=== PATIENT | female | born 1995 | race Two or more races ===

== ENCOUNTER 2020-04-22 07:27 | Emergency (ER) | payer MEDICAID ==
[2020-04-22] MEDS ORDERED: Sodium Chloride 0.9% 10 ML Syringe FLUSH PRN (08:12)
[2020-04-22] MEDS ORDERED: Ondansetron 4 MG/2 ML SDV IVPUSH ONE (08:12)
[2020-04-22] MEDS ORDERED: Acetaminophen 500 MG Tab PO ONE (08:12)
[2020-04-22] MEDS ORDERED: Sodium Chloride 0.9% 2.5 ML Syringe FLUSH PRN (08:12)
--- NOTE | 2020-04-22 08:22 | EDM.PDOC ---
ED HPI GENERAL MEDICAL PROBLEM - General Chief Complaint: Abdominal Pain Stated Complaint: ABDOMINAL PAIN Time Seen by Provider: 04/22/20 07:27 Source of Information: Reports: Police History Limitations: Reports: No Limitations - History of Present Illness INITIAL COMMENTS - FREE TEXT/NARRATIVE: 24-year-old female with past medical history of x2 presenting with abdominal pain. Patient reports a 2-month history of right upper quadrant abdominal pain that radiates to the back. Nothing makes it better or worse. Described as "pressure", intermittent in nature. Has not sought medical evaluation for this before. Usually lasts for just a few hours and goes away. This morning, the pain started around midnight and did not go away, which was unusual in the length of duration, so she came to the emergency department for evaluation. She reports some nausea but has not had any emesis. Intermittently taking ibuprofen without relief. No history of biliary colic or biliary disease, pancreatitis, liver disease, hematemesis, diarrhea, bloody stools, fever, chills, chest pain, vaginal bleeding, dysuria, urinary frequency, or hematuria. ROS: A 10-point review of systems was negative, except as noted in the HPI (or in the ROS section of this note). Past medical history: Reviewed, no additional pertinent history. Surgical history: Reviewed in system, no additional pertinent history. Social history: Reviewed in system, no additional pertinent history. Family history: Reviewed in system, no additional pertinent history. PHYSICAL EXAM Vital signs reviewed. Nursing notes reviewed. Constitutional: Awake, alert, uncomfortable appearing. Head: Normocephalic, atraumatic. Eyes: EOMI, conjunctiva normal, no discharge, no scleral icterus. Ears, Nose, Throat: External ears and nose normal, moist oral mucosa. Cardiovascular: 2+ radial pulse, capillary refill less than 2 seconds. Pulmonary: normal work of breathing, no accessory muscle use. Abdomen/GI: Soft, moderate right upper quadrant tenderness, nondistended, no guarding or rigidity, no masses. No CVA tenderness. Musculoskeletal: No deformities. Integumentary: Appropriate color for ethnicity, warm, dry, no pallor or jaundice, no rash. Neurologic: Alert, answering questions appropriately, normal speech, no facial droop, moving all extremities well. Psychiatric: Appropriate mood and affect, normal thought process. right abdomen Pain Score (Numeric/FACES): 8 - Related Data Allergies Allergy/AdvReac Type Severity Reaction Status Date / Time No Known Allergies Allergy Verified 04/22/20 07:41 Past Medical History HEENT History: Reports: None Cardiovascular History: Reports: None Respiratory History: Reports: None Gastrointestinal History: Reports: None Genitourinary History: Reports: None ROLL WINDER History: Reports: Musculoskeletal History: Reports: None Neurological History: Reports: None Psychiatric History: Reports: Anxiety Endocrine/Metabolic History: Reports: None Hematologic History: Reports: None Immunologic History: Reports: None Oncologic (Cancer) History: Reports: None Dermatologic History: Reports: None - Infectious Disease History Infectious Disease History: Reports: None - Past Surgical History Head Surgeries/Procedures: Reports: None HEENT Surgical History: Reports: None Cardiovascular Surgical History: Reports: None Respiratory Surgical History: Reports: None GI Surgical History: Reports: None Female Surgical History: Reports: Section Endocrine Surgical History: Reports: None Neurological Surgical History: Reports: None Musculoskeletal Surgical History: Reports: None Oncologic Surgical History: Reports: None Dermatological Surgical History: Reports: None Social & Family History - Family History Family Medical History: Noncontributory - Tobacco Use Smoking Status *Q: Never Smoker Second Hand Smoke Exposure: No - Caffeine Use Caffeine Use: Reports: None - Recreational Drug Use Recreational Drug Use: No ED ROS GENERAL - Review of Systems Review Of Systems: See Below ED EXAM, GI/ABD - Physical Exam Exam: See Below EKG INTERPRETATION EKG Interpretation Comments: 12-Lead ECG Interpretation Acquired: 8:33 AM Rhythm: Sinus arrhythmia Rate: 64 bpm Correll: Normal Intervals: Normal Ectopy: None Ischemic Changes: None apparent RV Strain: No obvious RV strain pattern. ST Segments/T-Waves: No notable changes Interpretation: Unremarkable Course - Vital Signs Text/Narrative:: Patient hemodynamically stable, afebrile, well-appearing, looks nontoxic. Differential diagnosis includes but is not limited to: Biliary colic, acute cholecystitis, ascending cholangitis, choledocholithiasis, acute hepatitis, pancreatitis, gastritis, AAA, GERD, bowel obstruction, intra-abdominal infection, pyelonephritis, pneumonia, acute coronary syndrome, etc. Labs are reassuring. No leukocytosis, normal renal function and electrolytes. Normal LFTs, lipase, and troponin. Urinalysis shows small occult blood but no evidence of infection. test is negative. Abdominal ultrasound demonstrated multiple gallstones but no evidence of acute cholecystitis. We gave the patient acetaminophen and her pain totally resolved. She is feeling much better. There is no evidence of an infectious process at this point, particularly cholecystitis. Patient's abdomen is soft and is less tender than before. She appears nontoxic and is now asymptomatic at this point. Presentation seems consistent with symptomatic cholelithiasis. Given that her symptoms have resolved, I did not pursue CT imaging. Plan: Patient is stable to discharge home with outpatient general surgery clinic follow-up in the next few weeks to determine if further work-up or elective cholecystectomy is warranted. We discussed [id number] treatment acetaminophen and NSAIDs, along with heating packs, and reducing the amount of fatty foods in her diet. Strict emergency department return precautions were provided, patient indicated understanding. All questions were answered prior to departure. Discharged in good condition. Last Recorded V/S: Last Vital Signs Temp 35.8 C L 04/22/20 07:42 Pulse 71 04/22/20 07:42 Resp 18 04/22/20 07:42 BP 126/75 04/22/20 07:42 Pulse Ox 97 04/22/20 07:42 - Orders/Labs/Meds Orders: Active Orders 24 hr Category Date Time Status EKG 12 Lead [EKG Documentation Completion] [RC] STAT Care 04/22/20 08:21 Active Sodium Chloride 0.9% [Saline Flush] Med 04/22/20 08:12 Active 10 ml FLUSH ASDIRECTED PRN Sodium Chloride 0.9% [Saline Flush] Med 04/22/20 08:12 Active 2.5 ml FLUSH ASDIRECTED PRN Saline Lock Insert [OM.PC] Stat Oth 04/22/20 08:12 Ordered Medication Orders Sodium Chloride (Saline Flush) 2.5 ml FLUSH ASDIRECTED PRN PRN Reason: Keep Vein Open Last Admin: 04/22/20 08:24 Dose: 2.5 ml Documented by: GIOVANY Sodium Chloride (Saline Flush) 10 ml FLUSH ASDIRECTED PRN PRN Reason: Keep Vein Open Last Admin: 04/22/20 08:23 Dose: 10 ml Documented by: [email or web address] Labs: Laboratory Tests 04/22/20 04/22/20 04/22/20 Range/Units 07:49 07:49 07:53 WBC 7.54 (4.0-11.0) K/uL RBC 4.81 (4.30-5.90) M/uL Hgb 14.0 (12.0-16.0) g/dL Hct 42.8 (36.0-46.0) % MCV 89.0 (80.0-98.0) fL MCH 29.1 (27.0-32.0) pg MCHC 32.7 (31.0-37.0) g/dL RDW Std Deviation 44.7 (28.0-62.0) fl RDW Coeff of Red 14 (11.0-15.0) % Plt Count 244 (150-400) K/uL MPV 10.40 (7.40-12.00) fL Neut % (Auto) 56.9 (48.0-80.0) % Lymph % (Auto) 33.3 (16.0-40.0) % Evans % (Auto) 7.7 (0.0-15.0) % Eos % (Auto) 2.0 (0.0-7.0) % Baso % (Auto) 0.1 (0.0-1.5) % Neut # (Auto) 4.3 (1.4-5.7) K/uL Lymph # (Auto) 2.5 H (0.6-2.4) K/uL Evans # (Auto) 0.6 (0.0-0.8) K/uL Eos # (Auto) 0.2 (0.0-0.7) K/uL Baso # (Auto) 0.0 (0.0-0.1) K/uL Nucleated RBC % 0.0 /100WBC Nucleated RBCs # 0 K/uL Sodium (136-145) mmol/L Potassium (3.5-5.1) mmol/L Chloride (98-107) mmol/L Carbon Dioxide (21.0-32.0) mmol/L BUN (7.0-18.0) mg/dL Creatinine (0.6-1.0) mg/dL Est Cr Clr Drug Dosing mL/min Estimated GFR (MDRD) ml/min Glucose (74-106) mg/dL Calcium (8.5-10.1) mg/dL Total Bilirubin (0.2-1.0) mg/dL AST (15-37) IU/L ALT (14-63) IU/L Alkaline Phosphatase (46-116) U/L Troponin I (0.000-0.056) ng/mL Total Protein (6.4-8.2) g/dL Albumin (3.4-5.0) g/dL Globulin (2.6-4.0) g/dL Albumin/Globulin Ratio (0.9-1.6) Lipase (73-393) U/L Urine Color YELLOW Urine Appearance SLT CLOUDY Urine pH 5.0 (5.0-8.0) Ur Specific Fabens >= 1.030 (1.001-1.035) Urine Protein NEGATIVE (NEGATIVE) mg/dL Urine Glucose (UA) NEGATIVE (NEGATIVE) mg/dL Urine Ketones NEGATIVE (NEGATIVE) mg/dL Urine Occult Blood SMALL H (NEGATIVE) Urine Nitrite NEGATIVE (NEGATIVE) Urine Bilirubin NEGATIVE (NEGATIVE) Urine Urobilinogen 0.2 (<2.0) EU/dL Ur Leukocyte Esterase NEGATIVE (NEGATIVE) Urine RBC 1-3 (0-2/HPF) Urine WBC 0-2 (0-5/HPF) Ur Epithelial Cells FEW (NONE-FEW) Urine Bacteria RARE (NEGATIVE) Urine Mucus HEAVY (NONE-MOD) Urine HCG, Qual NEGATIVE (NEGATIVE) 04/22/20 Range/Units 07:53 WBC (4.0-11.0) K/uL RBC (4.30-5.90) M/uL Hgb (12.0-16.0) g/dL Hct (36.0-46.0) % MCV (80.0-98.0) fL MCH (27.0-32.0) pg MCHC (31.0-37.0) g/dL RDW Std Deviation (28.0-62.0) fl RDW Coeff of Red (11.0-15.0) % Plt Count (150-400) K/uL MPV (7.40-12.00) fL Neut % (Auto) (48.0-80.0) % Lymph % (Auto) (16.0-40.0) % Evans % (Auto) (0.0-15.0) % Eos % (Auto) (0.0-7.0) % Baso % (Auto) (0.0-1.5) % Neut # (Auto) (1.4-5.7) K/uL Lymph # (Auto) (0.6-2.4) K/uL Evans # (Auto) (0.0-0.8) K/uL Eos # (Auto) (0.0-0.7) K/uL Baso # (Auto) (0.0-0.1) K/uL Nucleated RBC % /100WBC Nucleated RBCs # K/uL Sodium 140 (136-145) mmol/L Potassium 3.7 (3.5-5.1) mmol/L Chloride 104 (98-107) mmol/L Carbon Dioxide 28.8 (21.0-32.0) mmol/L BUN 14 (7.0-18.0) mg/dL Creatinine 0.8 (0.6-1.0) mg/dL Est Cr Clr Drug Dosing 92.83 mL/min Estimated GFR (MDRD) > 60.0 ml/min Glucose 114 H (74-106) mg/dL Calcium 8.9 (8.5-10.1) mg/dL Total Bilirubin 0.2 (0.2-1.0) mg/dL AST 21 (15-37) IU/L ALT 32 (14-63) IU/L Alkaline Phosphatase 104 (46-116) U/L Troponin I < 0.050 (0.000-0.056) ng/mL Total Protein 7.8 (6.4-8.2) g/dL Albumin 4.2 (3.4-5.0) g/dL Globulin 3.6 (2.6-4.0) g/dL Albumin/Globulin Ratio 1.2 (0.9-1.6) Lipase 97 (73-393) U/L Urine Color Urine Appearance Urine pH (5.0-8.0) Ur Specific Fabens (1.001-1.035) Urine Protein (NEGATIVE) mg/dL Urine Glucose (UA) (NEGATIVE) mg/dL Urine Ketones (NEGATIVE) mg/dL Urine Occult Blood (NEGATIVE) Urine Nitrite (NEGATIVE) Urine Bilirubin (NEGATIVE) Urine Urobilinogen (<2.0) EU/dL Ur Leukocyte Esterase (NEGATIVE) Urine RBC (0-2/HPF) Urine WBC (0-5/HPF) Ur Epithelial Cells (NONE-FEW) Urine Bacteria (NEGATIVE) Urine Mucus (NONE-MOD) Urine HCG, Qual (NEGATIVE) Meds: Medications Generic Name Dose Route Start Last Admin Trade Name Freq PRN Reason Stop Dose Admin Sodium Chloride 2.5 ml 04/22/20 08:12 04/22/20 08:24 Saline Flush FLUSH 2.5 ml ASDIRECTED PRN Administration Keep Vein Open Sodium Chloride 10 ml 04/22/20 08:12 04/22/20 08:23 Saline Flush FLUSH 10 ml ASDIRECTED PRN Administration Keep Vein Open Discontinued Medications Generic Name Dose Route Start Last Admin Trade Name Freq PRN Reason Stop Dose Admin Acetaminophen 1,000 mg 04/22/20 08:12 04/22/20 08:24 Tylenol Extra Strength PO 04/22/20 08:13 1,000 mg ONETIME ONE Administration Ondansetron HCl 4 mg 04/22/20 08:12 04/22/20 08:24 Zofran IVPUSH 04/22/20 08:13 4 mg ONETIME ONE Administration Departure - Departure Time of Disposition: 10:42 Disposition: Home, Self-Care 01 Condition: Good Clinical Impression: Symptomatic cholelithiasis - Discharge Information *PRESCRIPTION DRUG MONITORING PROGRAM REVIEWED*: Not Applicable *COPY OF PRESCRIPTION DRUG MONITORING REPORT IN PATIENT RIGO: Not Applicable Instructions: Cholelithiasis, Abdominal Pain, Adult, [id number] Referrals: [facility] - General Surgery [Provider Group] - 1 Week (For follow-up of your abdominal pain and gallstones.) Forms: ED Department Discharge Additional Instructions: Thank you for choosing the [facility] emergency department in [place] for your medical needs today. It was a pleasure caring for you. You were seen in the emergency department for abdominal pain. I believe that your pain is due to the presence of multiple gallstones in your gallbladder. At this point, there is no evidence of swelling or infection of the gallbladder that require to be surgically removed today. I would like for you to follow-up with the general surgery clinic in the next 1 to 2 weeks to determine if further work-up is warranted or if you are a candidate for elective surgical removal of your gallbladder. You can take [id number] acetaminophen or naproxen as needed for pain, take as directed on the package. He can also try heating pads. I recommend limiting the amount of fatty foods in your diet such as fried food, as this could make your pain worse. You should return to the ER if your symptoms worsen, particularly if you develop severe pain, multiple episodes of vomiting, chills, or fever of 100.4 or higher. Please return the emergency department immediately if your symptoms worsen or if you feel worse. The following information is given to patients seen in the emergency department who are being discharged. This information is to outline your options for follow-up care. We provide all patients seen in our emergency department with a follow-up referral. The need for follow-up, as well as the timing and circumstances, are variable depending upon the specifics of your emergency department visit. If you don't have a primary care physician on staff, we will provide you with a referral. We always advise you to contact your personal physician following an emergency department visit to inform them of the circumstance of the visit and for follow-up with them and/or the need for any referrals to a consulting specialist. The emergency department will also refer you to a specialist when appropriate. This referral assures that you have the opportunity for follow-up care with a specialist. All of these measure are taken in an effort to provide you with optimal care, which includes your follow-up. Under all circumstances we always encourage you to contact your private physician who remains a resource for coordinating your care. When calling for follow-up care, please make the office aware that this follow-up is from your recent emergency room visit. If for any reason you are refused follow-up, please contact the [facility] Emergency Department at and asked to speak to the emergency department charge nurse. If you do not have a primary care physician that is caring for you, you can contact these clinics below to set up an appointment to establish care: [facility] - Primary Care [address] [place] [address] [facility] [address] [place] [address] Sepsis Event Note (ED) - Evaluation Sepsis Screening Result: No Definite Risk - Focused Exam Vital Signs: Vital Signs Temp Pulse Resp BP Pulse Ox 04/22/20 07:42 35.8 C L 71 18 126/75 97 - My Orders Last 24 Hours: My Active Orders 04/22/20 08:12 Sodium Chloride 0.9% [Saline Flush] 10 ml FLUSH ASDIRECTED PRN Sodium Chloride 0.9% [Saline Flush] 2.5 ml FLUSH ASDIRECTED PRN Saline Lock Insert [OM.PC] Stat 04/22/20 08:21 EKG 12 Lead [EKG Documentation Completion] [RC] STAT - Assessment/Plan Last 24 Hours: My Active Orders 04/22/20 08:12 Sodium Chloride 0.9% [Saline Flush] 10 ml FLUSH ASDIRECTED PRN Sodium Chloride 0.9% [Saline Flush] 2.5 ml FLUSH ASDIRECTED PRN Saline Lock Insert [OM.PC] Stat 04/22/20 08:21 EKG 12 Lead [EKG Documentation Completion] [RC] STAT
[2020-04-22 08:31] LABS: BLOOD UREA NITROGEN,BUN 14 mg/dL (7.0-18.0); CARBON DIOXIDE,CO2 28.8 mmol/L (21.0-32.0); CHLORIDE,CL 104 mmol/L (98-107); GLUCOSE RANDOM 114 mg/dL (74-106); LIPASE 97 U/L (73-393); POTASSIUM,K 3.7 mmol/L (3.5-5.1); SODIUM,NA 140 mmol/L (136-145)
--- NOTE | 2020-04-22 09:59 | US ---
Abdominal ultrasound: Multiple real-time images of the upper right abdomen were obtained. Comparison: No prior abdominal imaging is available. Multiple small shadowing gallstones are seen within the gallbladder. No gallbladder wall thickening is seen. Common bile duct measures within normal limits. Liver contains no focal parenchymal abnormality but is slightly echogenic in relation to the kidney most likely representing fatty infiltration. Right kidney shows no hydronephrosis or mass. Right kidney has a length of 10.3 cm. Visualized portions of the pancreas are unremarkable. Impression: 1. Multiple small shadowing gallstones within the gallbladder. No gallbladder wall thickening or biliary duct dilatation is seen. 2. Probable fatty infiltration within the liver. 3. Ultrasound of the right upper abdomen is otherwise unremarkable. Diagnostic code #3 This report was dictated in MDT
== END 2020-04-22 10:50 | disposition home or self-care (01) ==
LOC: MW.ED 07:27
DX: K80.20 Calculus of gallbladder without cholecystitis without obstruction (principal)
CPT/HCPCS: 36415; 76705; 80053; 81001; 81025; 83690; 84484; 85025; 93005; 96374; 99284; A9270; J2405

== ENCOUNTER 2020-05-15 20:24 | Emergency (ER) | payer MEDICAID ==
[2020-05-15] MEDS ORDERED: Sodium Chloride 0.9% 2.5 ML Syringe FLUSH PRN (20:46)
[2020-05-15] MEDS ORDERED: Ondansetron 4 MG/2 ML SDV IVPUSH ONE ×2 (20:46→22:02)
[2020-05-15] MEDS ORDERED: Sodium Chloride 0.9% 10 ML Syringe FLUSH PRN (20:46)
[2020-05-15] MEDS ORDERED: Morphine 4 MG/ML Syringe IVPUSH ONE (20:46)
[2020-05-15] MEDS ORDERED: Lactated Ringers 1,000 ML IV ONE (20:47)
--- NOTE | 2020-05-15 20:52 | EDM.PDOC ---
ED HPI GENERAL MEDICAL PROBLEM - General Chief Complaint: Abdominal Pain Stated Complaint: GALLSTONES Time Seen by Provider: 05/15/20 20:29 - History of Present Illness INITIAL COMMENTS - FREE TEXT/NARRATIVE: Patient is an otherwise well 24-year-old female presenting with a 10 out of 10 epigastric abdominal pain with some radiation to the right upper quadrant associated with nausea but no vomiting it started 30 minutes prior to arrival. It is cramping and seems to come and go in waves. No flank pain no dysuria or hematuria. Patient reports she had a small bowel movement earlier this morning. She does have a history of trouble with constipation. Patient denies having any thing to eat since this morning. No clear exacerbating or alleviating factors patient had a similar presentation at the beginning of this month and was diagnosed with cholelithiasis. Patient attempted to follow-up with the general surgeons. However, because of her insurance she is not covered locally. She reports that she is returning to [place] at the end of this month and plans to pursue cholecystectomy when she returns to [place]. She denies fevers or chills. She denies vaginal bleeding or discharge. No chest pain no cough no shortness of breath. Middle Abdomen Pain Score (Numeric/FACES): 10 - Related Data Allergies Allergy/AdvReac Type Severity Reaction Status Date / Time No Known Allergies Allergy Verified 05/15/20 20:42 Home Meds: Home Meds . 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: Musculoskeletal History: Reports: None Neurological History: Reports: None Psychiatric History: Reports: Anxiety Endocrine/Metabolic History: Reports: None Hematologic History: Reports: None Immunologic History: Reports: None Oncologic (Cancer) History: Reports: None Dermatologic History: Reports: None - Infectious Disease History Infectious Disease History: Reports: None - Past Surgical History Head Surgeries/Procedures: Reports: None HEENT Surgical History: Reports: None Cardiovascular Surgical History: Reports: None Respiratory Surgical History: Reports: None GI Surgical History: Reports: None Female Surgical History: Reports: Section Endocrine Surgical History: Reports: None Neurological Surgical History: Reports: None Musculoskeletal Surgical History: Reports: None Oncologic Surgical History: Reports: None Dermatological Surgical History: Reports: None Social & Family History - Family History Family Medical History: Noncontributory - Tobacco Use Smoking Status *Q: Never Smoker Second Hand Smoke Exposure: No - Caffeine Use Caffeine Use: Reports: None - Recreational Drug Use Recreational Drug Use: No ED ROS GENERAL - Review of Systems Review Of Systems: See Below Free Text/Narrative/Comment: General: No fever. Skin: No rash. Eyes: No vision problems. ENT: No sore throat. Neck: No neck stiffness. Respiratory: No shortness of breath. Cardiac: No chest pain. Gastrointestinal: Per HPI Urinary: No dysuria. Musculoskeletal: No myalgias/arthralgias. Neurologic: No headache. ED EXAM, GENERAL - Physical Exam Exam: See Below Free Text/Narrative:: General Appearance: No acute distress, appears comfortable Skin: No rash HEENT: Normocephalic/atraumatic, sclera anicteric, mucous membranes moist Neck: Normal range of motion Chest and Lungs: Bilateral breath sounds, clear to auscultation Cardiovascular: Regular rate and rhythm, no murmur Abdomen: Soft, epigastric and right upper quadrant tenderness without guarding or rebound Back: Normal Musculoskeletal: No edema or tenderness Neurologic: Awake, alert, no obvious deficits, moving all extremities Psychiatric: Appropriate, cooperative Course - Vital Signs Last Recorded V/S: Last Vital Signs Temp 97.6 F 05/15/20 20:36 Pulse 71 05/15/20 21:10 Resp 18 05/15/20 20:36 BP 127/80 05/15/20 21:10 Pulse Ox 95 05/15/20 21:10 - Orders/Labs/Meds Orders: Active Orders 24 hr Category Date Time Status Sodium Chloride 0.9% [Saline Flush] Med 05/15/20 20:46 Active 10 ml FLUSH ASDIRECTED PRN Sodium Chloride 0.9% [Saline Flush] Med 05/15/20 20:46 Active 2.5 ml FLUSH ASDIRECTED PRN Saline Lock Insert [OM.PC] Stat Oth 05/15/20 20:46 Ordered Medication Orders Sodium Chloride (Saline Flush) 10 ml FLUSH ASDIRECTED PRN PRN Reason: Keep Vein Open Last Admin: 05/15/20 21:05 Dose: 10 ml Documented by: RAINA Sodium Chloride (Saline Flush) 2.5 ml FLUSH ASDIRECTED PRN PRN Reason: Keep Vein Open Last Admin: 05/15/20 21:05 Dose: 2.5 ml Documented by: RAINA Labs: Laboratory Tests 05/15/20 05/15/20 05/15/20 Range/Units 21:00 21:00 22:00 WBC 7.21 (4.0-11.0) K/uL RBC 4.74 (4.30-5.90) M/uL Hgb 13.9 (12.0-16.0) g/dL Hct 42.2 (36.0-46.0) % MCV 89.0 (80.0-98.0) fL MCH 29.3 (27.0-32.0) pg MCHC 32.9 (31.0-37.0) g/dL RDW Std Deviation 43.6 (28.0-62.0) fl RDW Coeff of Red 13 (11.0-15.0) % Plt Count 231 (150-400) K/uL MPV 10.40 (7.40-12.00) fL Neut % (Auto) 60.5 (48.0-80.0) % Lymph % (Auto) 30.8 (16.0-40.0) % [place] % (Auto) 6.7 (0.0-15.0) % Eos % (Auto) 1.9 (0.0-7.0) % Baso % (Auto) 0.1 (0.0-1.5) % Neut # (Auto) 4.4 (1.4-5.7) K/uL Lymph # (Auto) 2.2 (0.6-2.4) K/uL [place] # (Auto) 0.5 (0.0-0.8) K/uL Eos # (Auto) 0.1 (0.0-0.7) K/uL Baso # (Auto) 0.0 (0.0-0.1) K/uL Nucleated RBC % 0.0 /100WBC Nucleated RBCs # 0 K/uL Sodium 141 (136-145) mmol/L Potassium 3.9 (3.5-5.1) mmol/L Chloride 105 (98-107) mmol/L Carbon Dioxide 25.7 (21.0-32.0) mmol/L BUN 14 (7.0-18.0) mg/dL Creatinine 0.8 (0.6-1.0) mg/dL Est Cr Clr Drug Dosing 92.83 mL/min Estimated GFR (MDRD) > 60.0 ml/min Glucose 102 (74-106) mg/dL Calcium 9.2 (8.5-10.1) mg/dL Total Bilirubin 0.1 L (0.2-1.0) mg/dL AST 19 (15-37) IU/L ALT 30 (14-63) IU/L Alkaline Phosphatase 98 (46-116) U/L Total Protein 7.5 (6.4-8.2) g/dL Albumin 4.1 (3.4-5.0) g/dL Globulin 3.4 (2.6-4.0) g/dL Albumin/Globulin Ratio 1.2 (0.9-1.6) Lipase 93 (73-393) U/L Urine Color YELLOW Urine Appearance SLT CLOUDY Urine pH 5.5 (5.0-8.0) Ur Specific [place] >= 1.030 (1.001-1.035) Urine Protein NEGATIVE (NEGATIVE) mg/dL Urine Glucose (UA) NEGATIVE (NEGATIVE) mg/dL Urine Ketones TRACE H (NEGATIVE) mg/dL Urine Occult Blood TRACE-INTACT H (NEGATIVE) Urine Nitrite NEGATIVE (NEGATIVE) Urine Bilirubin NEGATIVE (NEGATIVE) Urine Urobilinogen 0.2 (<2.0) EU/dL Ur Leukocyte Esterase NEGATIVE (NEGATIVE) Urine RBC 1-3 (0-2/HPF) Urine WBC 0-3 (0-5/HPF) Ur Epithelial Cells MODERATE (NONE-FEW) Urine Bacteria 2+ H (NEGATIVE) Urine Mucus MODERATE (NONE-MOD) Urine HCG, Qual (NEGATIVE) 05/15/20 Range/Units 22:00 WBC (4.0-11.0) K/uL RBC (4.30-5.90) M/uL Hgb (12.0-16.0) g/dL Hct (36.0-46.0) % MCV (80.0-98.0) fL MCH (27.0-32.0) pg MCHC (31.0-37.0) g/dL RDW Std Deviation (28.0-62.0) fl RDW Coeff of Red (11.0-15.0) % Plt Count (150-400) K/uL MPV (7.40-12.00) fL Neut % (Auto) (48.0-80.0) % Lymph % (Auto) (16.0-40.0) % [place] % (Auto) (0.0-15.0) % Eos % (Auto) (0.0-7.0) % Baso % (Auto) (0.0-1.5) % Neut # (Auto) (1.4-5.7) K/uL Lymph # (Auto) (0.6-2.4) K/uL [place] # (Auto) (0.0-0.8) K/uL Eos # (Auto) (0.0-0.7) K/uL Baso # (Auto) (0.0-0.1) K/uL Nucleated RBC % /100WBC Nucleated RBCs # K/uL Sodium (136-145) mmol/L Potassium (3.5-5.1) mmol/L Chloride (98-107) mmol/L Carbon Dioxide (21.0-32.0) mmol/L BUN (7.0-18.0) mg/dL Creatinine (0.6-1.0) mg/dL Est Cr Clr Drug Dosing mL/min Estimated GFR (MDRD) ml/min Glucose (74-106) mg/dL Calcium (8.5-10.1) mg/dL Total Bilirubin (0.2-1.0) mg/dL AST (15-37) IU/L ALT (14-63) IU/L Alkaline Phosphatase (46-116) U/L Total Protein (6.4-8.2) g/dL Albumin (3.4-5.0) g/dL Globulin (2.6-4.0) g/dL Albumin/Globulin Ratio (0.9-1.6) Lipase (73-393) U/L Urine Color Urine Appearance Urine pH (5.0-8.0) Ur Specific [place] (1.001-1.035) Urine Protein (NEGATIVE) mg/dL Urine Glucose (UA) (NEGATIVE) mg/dL Urine Ketones (NEGATIVE) mg/dL Urine Occult Blood (NEGATIVE) Urine Nitrite (NEGATIVE) Urine Bilirubin (NEGATIVE) Urine Urobilinogen (<2.0) EU/dL Ur Leukocyte Esterase (NEGATIVE) Urine RBC (0-2/HPF) Urine WBC (0-5/HPF) Ur Epithelial Cells (NONE-FEW) Urine Bacteria (NEGATIVE) Urine Mucus (NONE-MOD) Urine HCG, Qual NEGATIVE (NEGATIVE) Meds: Medications Generic Name Dose Route Start Last Admin Trade Name Freq PRN Reason Stop Dose Admin Sodium Chloride 10 ml 05/15/20 20:46 05/15/20 21:05 Saline Flush FLUSH 10 ml ASDIRECTED PRN Administration Keep Vein Open Sodium Chloride 2.5 ml 05/15/20 20:46 05/15/20 21:05 Saline Flush FLUSH 2.5 ml ASDIRECTED PRN Administration Keep Vein Open Discontinued Medications Generic Name Dose Route Start Last Admin Trade Name Freq PRN Reason Stop Dose Admin Lactated Ringer's 1,000 mls @ 999 mls/hr 05/15/20 20:47 05/15/20 21:00 Ringers, Lactated IV 05/15/20 21:47 999 mls/hr .BOLUS ONE Administration Morphine Sulfate 4 mg 05/15/20 20:46 05/15/20 21:02 Morphine IVPUSH 05/15/20 20:47 4 mg ONETIME ONE Administration Ondansetron HCl 4 mg 05/15/20 20:46 05/15/20 21:02 Zofran IVPUSH 05/15/20 20:47 4 mg ONETIME ONE Administration Ondansetron HCl 4 mg 05/15/20 22:02 05/15/20 22:08 Zofran IVPUSH 05/15/20 22:03 4 mg ONETIME ONE Administration Departure - Departure Time of Disposition: 23:14 Disposition: Home, Self-Care 01 Condition: Good Clinical Impression: Biliary colic - Discharge Information *PRESCRIPTION DRUG MONITORING PROGRAM REVIEWED*: Not Applicable *COPY OF PRESCRIPTION DRUG MONITORING REPORT IN PATIENT RIOG: Not Applicable Instructions: Biliary Colic, Adult, Gallbladder Eating Plan, Constipation, Adult Referrals: [facility] [Ordering Only Provider] - Forms: ED Department Discharge Additional Instructions: Please maintain a low fat diet as discussed with the surgeon. If you have another episode of severe pain that does not resolve then please return to the ER. You remain at risk for developing a gallbladder infection. For your constipation please start taking Miralax as directed on the bottle. This can be obtained from any pharmacy. The following information is given to patients seen in the emergency department who are being discharged to home. This information is to outline your options for follow-up care. We provide all patients seen in our emergency department with a follow-up referral. The need for follow-up, as well as the timing and circumstances, are variable depending upon the specifics of your emergency department visit. If you don't have a primary care physician on staff, we will provide you with a referral. We always advise you to contact your personal physician following an emergency department visit to inform them of the circumstance of the visit and for follow-up with them and/or the need for any referrals to a consulting specialist. The emergency department will also refer you to a specialist when appropriate. This referral assures that you have the opportunity for follow-up care with a specialist. All of these measure are taken in an effort to provide you with optimal care, which includes your follow-up. Under all circumstances we always encourage you to contact your private physician who remains a resource for coordinating your care. When calling for follow-up care, please make the office aware that this follow-up is from your recent emergency room visit. If for any reason you are refused follow-up, please contact the [facility] Emergency Department at and asked to speak to the emergency department charge nurse. Sepsis Event Note (ED) - Evaluation Sepsis Screening Result: No Definite Risk - Focused Exam Vital Signs: Vital Signs Temp Pulse Resp BP Pulse Ox 05/15/20 21:10 71 127/80 95 05/15/20 20:36 97.6 F 66 18 119/67 98 - My Orders Last 24 Hours: My Active Orders 05/15/20 20:46 Sodium Chloride 0.9% [Saline Flush] 10 ml FLUSH ASDIRECTED PRN Sodium Chloride 0.9% [Saline Flush] 2.5 ml FLUSH ASDIRECTED PRN Saline Lock Insert [OM.PC] Stat - Assessment/Plan Last 24 Hours: My Active Orders 05/15/20 20:46 Sodium Chloride 0.9% [Saline Flush] 10 ml FLUSH ASDIRECTED PRN Sodium Chloride 0.9% [Saline Flush] 2.5 ml FLUSH ASDIRECTED PRN Saline Lock Insert [OM.PC] Stat Assessment:: 24-year-old female presenting with signs and symptoms most consistent with biliary colic versus early cholecystitis. Peptic ulcer disease and GERD considered as well no lower abdominal findings that would suggest diverticulitis or appendicitis. Renal colic considered but no hematuria no flank findings. No respiratory symptoms that would suggest inferior lung findings. Patient significant epigastric and right upper quadrant tenderness would also argue against pulmonary and renal pathology. For now morphine and Zofran for symptoms as well as a liter of LR. CBC CMP lipase urinalysis U right upper quadrant ultrasound. If these are unremarkable and pain persist could consider CT at that time. 2220: Patient continues to report severe pain and nausea. Her labs do not show evidence of acute cholecystitis or choledocholithiasis. US w/out multiple stones and contracted gallbladder but w/out acute cholecystitis. However, given persistent pain and nausea as well as PO intolerance patient discussed with Dr. Randhawa. He will come evaluate the patient. 2315: At the time of Dr. Randhawa's evaluation the patient is symptom free. Given this, and after discussion between Dr. Randhawa and the patient will dc with plan low fat diet and recommendation that she return for worsening symptoms.
[2020-05-15 21:30] LABS: BLOOD UREA NITROGEN,BUN 14 mg/dL (7.0-18.0); CARBON DIOXIDE,CO2 25.7 mmol/L (21.0-32.0); CHLORIDE,CL 105 mmol/L (98-107); GLUCOSE RANDOM 102 mg/dL (74-106); LIPASE 93 U/L (73-393); POTASSIUM,K 3.9 mmol/L (3.5-5.1); SODIUM,NA 141 mmol/L (136-145)
--- NOTE | 2020-05-15 22:11 | US ---
INDICATION: Right upper quadrant pain and tenderness TECHNIQUE: Ultrasound abdomen limited. Sonographic images of the right upper quadrant were obtained using galvez-scale and color Doppler images. COMPARISON: Abdominal ultrasound April 22, 2020 FINDINGS: Liver: Normal in size. Increased echotexture throughout the liver. No masses. No intrahepatic biliary dilatation. Gallbladder: Cholelithiasis within a contracted gallbladder. Normal wall thickness. No pericholecystic fluid. Negative Bella`s sign. Common bile duct: 2 mm. Pancreas: Normal. Right kidney: 10.5 cm. Normal echotexture and cortex. No masses, stones, or hydronephrosis. Vasculature: Proximal abdominal aorta and IVC are normal. IMPRESSION: Cholelithiasis without evidence for cholecystitis. Hepatic steatosis. Dictated by Sharlene Becker MD @ May 15 2020 10:10PM Signed by Dr. Sharlene Becker @ May 15 2020 10:10PM
--- NOTE | 2020-05-16 12:29 | CONS ---
DATE OF CONSULTATION: 05/15/2020 DATE OF : 1995 PRIMARY CARE PHYSICIAN: Not In Area PCP HISTORY OF PRESENT ILLNESS: The patient is a pleasant 24-year-old female who states for the past 3 to 4 months she has been having some epigastric right upper quadrant pain. She said this sometimes happens after eating. She describes it as pressure and pain. Usually, it lasts for half hour to an hour although occasionally lasts longer. Several weeks ago, she was in the ER for the exact same and was diagnosed with gallstones. She was going to follow up with Surgery. The patient states she was unable to because her insurance would not allow her to get a consult except for in [place] since that is where she is from unless it is an emergency. The patient states she had a little bit of nausea this time, but that has gone away. The patient states this attack might have been triggered because she had some lasagna. Currently, the patient's pain and nausea have completely resolved. She is feeling good. She has no complaints. PAST MEDICAL HISTORY: The patient denies any. CURRENT HOME MEDICATIONS: The patient denies any. ALLERGIES: The patient denies any. FAMILY HISTORY: The patient denies any family history of cancer, diabetes, or heart disease. PAST SURGICAL HISTORY: 5 months ago. SOCIAL HISTORY: The patient denies any tobacco use. She denies any illicit drug use. She says she will occasionally drink and has had no alcohol over the last couple of weeks since her last gallbladder attack. REVIEW OF SYSTEMS: Complete 12-plus review of systems was done and was negative except for what is in the HPI. GASTROINTESTINAL: The patient does have constipation. NEUROLOGICAL: The patient does have anxiety attacks occasionally. PHYSICAL EXAMINATION: GENERAL: The patient is sitting comfortably in the room. She is alert and oriented, in no acute distress. VITAL SIGNS: Temperature is 97.6, heart rate is 71, blood pressure is 124/80, and saturating 95% on room air. LUNGS: Clear to auscultation bilaterally. No rhonchi or wheezing heard. HEART: Regular rhythm. No murmur appreciated. ABDOMEN: Soft, nontender, and nondistended. EXTREMITIES: No edema. NEUROLOGIC: Grossly no motor or neurologic deficits noted. IMAGING: Did show cholelithiasis with a contracted gallbladder. No wall thickening. No pericholecystic fluid. Negative Bella sign. LABORATORY DATA: White cell count is 7.21, hemoglobin 13.9. Sodium 141, potassium 3.9, BUN 14, creatinine 0.8, glucose is 102, total bilirubin 0.1, AST is 19, ALT is 30, alkaline phosphatase is 98. ASSESSMENT AND PLAN: This is a pleasant 24-year-old female who sounds like she has symptomatic cholelithiasis. Did give over with the patient what a gallbladder was. Did discuss the functionality of the gallbladder. Went over possible removal of the gallbladder with a laparoscopic cholecystectomy. Went over the risks, goals, and alternatives to the procedure. Did go over with the patient that since she was having no pain now, does not appear cholecystitis, she does not have any criteria for admission to the hospital currently. The patient understands. Did go over with the patient that she should follow up in the clinic as an outpatient. The patient should to try to keep her low-fat diet, and hopefully she said she would try to get home to [place] in the next couple of weeks to have the surgery done there. Told the patient if she does have the pain that is intractable, gets fever or chills, she needs to come back to the hospital. The patient understands. All questions were answered. I did discuss plan with the ER physician. EMANI / KATARINA /[id number] MTDD
== END 2020-05-15 23:43 | disposition home or self-care (01) ==
LOC: MW.ED 20:24
DX: K80.50 Calculus of bile duct without cholangitis or cholecystitis without obstruction (principal); K59.00 Constipation, unspecified
CPT/HCPCS: 36415; 76705; 80053; 81001; 81025; 83690; 85025; 96361; 96374; 96375; 96376; 99284; J2270; J2405; J7120; 99283

== ENCOUNTER 2020-05-17 21:48 | Emergency (ER) | payer MEDICAID ==
[2020-05-17] MEDS ORDERED: Sodium Chloride 0.9% 10 ML Syringe FLUSH PRN (23:29)
[2020-05-17] MEDS ORDERED: Sodium Chloride 0.9% 2.5 ML Syringe FLUSH PRN (23:29)
[2020-05-18] MEDS ORDERED: Acetaminophen 500 MG Tab PO ONE (00:06)
[2020-05-18] MEDS ORDERED: Alum Hydrox/Mag Hydrox/Simeth 15 ML, Lidocaine 2% 5 ML PO ONE ×2 (00:06)
--- NOTE | 2020-05-18 00:08 | EDM.PDOC ---
ED HPI GENERAL MEDICAL PROBLEM - General Chief Complaint: Abdominal Pain Stated Complaint: ABDOMINAL PAIN, CONSTIPATION Time Seen by Provider: 05/17/20 23:10 Source of Information: Reports: Patient, Old Records History Limitations: Reports: No Limitations - History of Present Illness INITIAL COMMENTS - FREE TEXT/NARRATIVE: 24-year-old female the past medical history of cholelithiasis presenting with abdominal pain and constipation. She has been seen in emergency department twice over the past several weeks for right-sided abdominal pain and was diagnosed with symptomatic cholelithiasis but she has not seen a general surgeon in the clinic yet to pursue elective cholecystectomy. This evening, she presents to the emergency department complaining of 4 days of constipation and 1 day of epigastric abdominal pain. She describes as "burning" and states that the pain radiates to her back. It has been constant. Nothing makes it better or worse. She did drink some prune juice, took Excedrin, and an unspecified laxative at home without relief. She reports intermittent nausea but no emesis. Denies hematemesis, rectal bleeding, vaginal bleeding or discharge, fever, jennifer st pain, or shortness of breath. No flank pain, dysuria, or hematuria. ROS: A 10-point review of systems was negative, except as noted in the HPI (or in the ROS section of this note). Past medical history: Reviewed, no additional pertinent history. Surgical history: Reviewed in system, no additional pertinent history. Social history: Reviewed in system, no additional pertinent history. Family history: Reviewed in system, no additional pertinent history. PHYSICAL EXAM Vital signs reviewed. Nursing notes reviewed. Constitutional: Awake, alert, non-distressed. Head: Normocephalic, atraumatic. Eyes: EOMI, conjunctiva normal, no discharge, no scleral icterus. Ears, Nose, Throat: External ears and nose normal, moist oral mucosa. Cardiovascular: 2+ radial pulse, capillary refill less than 2 seconds. Pulmonary: normal work of breathing, no accessory muscle use. Abdomen/GI: Soft, moderate epigastric tenderness, nondistended, no guarding or rigidity, no masses. No CVA tenderness. Musculoskeletal: No deformities. Integumentary: Appropriate color for ethnicity, warm, dry, no pallor or jaundice, no rash. Neurologic: Alert, answering questions appropriately, normal speech, no facial droop, moving all extremities well. Psychiatric: Appropriate mood and affect, normal thought process. 9 Pain Score (Numeric/FACES): 9 - Related Data Allergies Allergy/AdvReac Type Severity Reaction Status Date / Time No Known Allergies Allergy Verified 05/15/20 20:42 Home Meds: Home Meds . [No Known Home Meds] 05/15/20 [History] Past Medical History HEENT History: Reports: None Cardiovascular History: Reports: None Respiratory History: Reports: None Gastrointestinal History: Reports: None Genitourinary History: Reports: None INSIDE TESTER History: Reports: Musculoskeletal History: Reports: None Neurological History: Reports: None Psychiatric History: Reports: Anxiety Endocrine/Metabolic History: Reports: None Hematologic History: Reports: None Immunologic History: Reports: None Oncologic (Cancer) History: Reports: None Dermatologic History: Reports: None - Infectious Disease History Infectious Disease History: Reports: None - Past Surgical History Head Surgeries/Procedures: Reports: None HEENT Surgical History: Reports: None Cardiovascular Surgical History: Reports: None Respiratory Surgical History: Reports: None GI Surgical History: Reports: None Female Surgical History: Reports: Section Endocrine Surgical History: Reports: None Neurological Surgical History: Reports: None Musculoskeletal Surgical History: Reports: None Oncologic Surgical History: Reports: None Dermatological Surgical History: Reports: None Social & Family History - Family History Family Medical History: Noncontributory - Tobacco Use Smoking Status *Q: Never Smoker - Caffeine Use Caffeine Use: Reports: None - Recreational Drug Use Recreational Drug Use: No ED ROS GENERAL - Review of Systems Review Of Systems: See Below ED EXAM, GI/ABD - Physical Exam Exam: See Below Course - Vital Signs Text/Narrative:: Patient hemodynamically stable, afebrile, well-appearing, looks nontoxic. Differential diagnosis includes but is not limited to: Pancreatitis, gastritis, peptic ulcer disease, AAA, intra-abdominal infection, constipation, colitis, mesenteric ischemia, kidney stone, epiploic appendagitis, less likely acute coronary syndrome or pneumonia, and many others CBC shows normal cell lines. Lactate is normal. Electrolytes and renal function are normal. LFTs are deranged with a total bilirubin of 2.1, AST 602, ALT 794, alkaline phosphatase 218. Lipase is normal and test is negative. Urinalysis shows no blood or evidence of infection. Patient's pain totally resolved after acetaminophen and a GI cocktail. CT scan of the abdomen/pelvis with contrast demonstrated fatty infiltration of the liver but no evidence of cholecystitis, radiologist did note CBD dilation at 9 mm after I spoke with him on the phone. Given her marked elevations in her liver function tests, I was somewhat concerned for an obstructive hepatobiliary pathology, possibly choledocholithiasis. However, her pain has totally resolved and she adamantly denies any pain at this point. I did speak with the radiologist who notes that there is biliary ductal dilation on the CT study. I did consider potential Tylenol toxicity, however, the patient states that she has only taken 1 dose of Excedrin today and none in the preceding days, no stand-alone acetaminophen intake either. Given evidence of CBD dilation with elevated LFTs, choledocholithiasis is a possibility. I did discuss with Dr. Stefan Herrera our general surgeon on-call. He is reassured by the pact the patient is pain-free, afebrile, and has no leukocytosis. We will plan to have the patient be reevaluated by Dr. Herrera in the general surgery clinic later today, Dr. Herrera states that he can order an MRCP study if he feels that it is warranted. In the meantime the patient is stable to discharge home with general surgery follow-up later today. I recommended [id number] MiraLAX, Tylenol, Maalox max, and Prilosec. I also recommended increasing her fiber and fluid intake. We discussed return precautions at length including worsening abdominal pain, fever, or any other new or concerning symptoms. Plan: Patient is stable to discharge home with outpatient general surgery clinic follow-up. Strict emergency department return precautions were provided, patient indicated understanding. All questions were answered prior to departure. Discharged in good condition. Last Recorded V/S: Last Vital Signs Temp 35.9 C L 05/18/20 03:08 Pulse 58 L 05/18/20 03:08 Resp 14 05/18/20 03:08 BP 127/83 05/18/20 03:08 Pulse Ox 97 05/18/20 03:08 - Orders/Labs/Meds Orders: Active Orders 24 hr Category Date Time Status Saline Lock Insert [OM.PC] Stat Oth 05/17/20 23:30 Ordered Labs: Laboratory Tests 05/17/20 05/17/20 05/17/20 Range/Units 23:39 23:54 23:54 WBC 7.09 (4.0-11.0) K/uL RBC 5.02 (4.30-5.90) M/uL Hgb 14.4 (12.0-16.0) g/dL Hct 44.6 (36.0-46.0) % MCV 88.8 (80.0-98.0) fL MCH 28.7 (27.0-32.0) pg MCHC 32.3 (31.0-37.0) g/dL RDW Std Deviation 43.7 (28.0-62.0) fl RDW Coeff of Red 13 (11.0-15.0) % Plt Count 249 (150-400) K/uL MPV 10.70 (7.40-12.00) fL Neut % (Auto) 71.1 (48.0-80.0) % Lymph % (Auto) 19.7 (16.0-40.0) % [place] % (Auto) 8.3 (0.0-15.0) % Eos % (Auto) 0.8 (0.0-7.0) % Baso % (Auto) 0.1 (0.0-1.5) % Neut # (Auto) 5.0 (1.4-5.7) K/uL Lymph # (Auto) 1.4 (0.6-2.4) K/uL [place] # (Auto) 0.6 (0.0-0.8) K/uL Eos # (Auto) 0.1 (0.0-0.7) K/uL Baso # (Auto) 0.0 (0.0-0.1) K/uL Nucleated RBC % 0.0 /100WBC Nucleated RBCs # 0 K/uL Lactate 1.0 (0.20-2.00) mmol/L Sodium (136-145) mmol/L Potassium (3.5-5.1) mmol/L Chloride (98-107) mmol/L Carbon Dioxide (21.0-32.0) mmol/L BUN (7.0-18.0) mg/dL Creatinine (0.6-1.0) mg/dL Est Cr Clr Drug Dosing mL/min Estimated GFR (MDRD) ml/min Glucose (74-106) mg/dL Calcium (8.5-10.1) mg/dL Total Bilirubin (0.2-1.0) mg/dL AST (15-37) IU/L ALT (14-63) IU/L Alkaline Phosphatase (46-116) U/L Total Protein (6.4-8.2) g/dL Albumin (3.4-5.0) g/dL Globulin (2.6-4.0) g/dL Albumin/Globulin Ratio (0.9-1.6) Lipase (73-393) U/L HCG, Qual (NEG) Urine Color YELLOW Urine Appearance CLEAR Urine pH 6.0 (5.0-8.0) Ur Specific [place] <= 1.005 (1.001-1.035) Urine Protein NEGATIVE (NEGATIVE) mg/dL Urine Glucose (UA) NEGATIVE (NEGATIVE) mg/dL Urine Ketones NEGATIVE (NEGATIVE) mg/dL Urine Occult Blood NEGATIVE (NEGATIVE) Urine Nitrite NEGATIVE (NEGATIVE) Urine Bilirubin NEGATIVE (NEGATIVE) Urine Urobilinogen 0.2 (<2.0) EU/dL Ur Leukocyte Esterase NEGATIVE (NEGATIVE) 05/17/20 05/17/20 Range/Units 23:54 23:54 WBC (4.0-11.0) K/uL RBC (4.30-5.90) M/uL Hgb (12.0-16.0) g/dL Hct (36.0-46.0) % MCV (80.0-98.0) fL MCH (27.0-32.0) pg MCHC (31.0-37.0) g/dL RDW Std Deviation (28.0-62.0) fl RDW Coeff of Red (11.0-15.0) % Plt Count (150-400) K/uL MPV (7.40-12.00) fL Neut % (Auto) (48.0-80.0) % Lymph % (Auto) (16.0-40.0) % [place] % (Auto) (0.0-15.0) % Eos % (Auto) (0.0-7.0) % Baso % (Auto) (0.0-1.5) % Neut # (Auto) (1.4-5.7) K/uL Lymph # (Auto) (0.6-2.4) K/uL [place] # (Auto) (0.0-0.8) K/uL Eos # (Auto) (0.0-0.7) K/uL Baso # (Auto) (0.0-0.1) K/uL Nucleated RBC % /100WBC Nucleated RBCs # K/uL Lactate (0.20-2.00) mmol/L Sodium 139 (136-145) mmol/L Potassium 3.9 (3.5-5.1) mmol/L Chloride 103 (98-107) mmol/L Carbon Dioxide 25.6 (21.0-32.0) mmol/L BUN 9 (7.0-18.0) mg/dL Creatinine 1.0 (0.6-1.0) mg/dL Est Cr Clr Drug Dosing 71.14 mL/min Estimated GFR (MDRD) > 60.0 ml/min Glucose 108 H (74-106) mg/dL Calcium 9.2 (8.5-10.1) mg/dL Total Bilirubin 2.1 H (0.2-1.0) mg/dL AST 602 H (15-37) IU/L ALT 794 H (14-63) IU/L Alkaline Phosphatase 218 H (46-116) U/L Total Protein 7.8 (6.4-8.2) g/dL Albumin 4.2 (3.4-5.0) g/dL Globulin 3.6 (2.6-4.0) g/dL Albumin/Globulin Ratio 1.2 (0.9-1.6) Lipase 100 (73-393) U/L HCG, Qual NEGATIVE (NEG) Urine Color Urine Appearance Urine pH (5.0-8.0) Ur Specific [place] (1.001-1.035) Urine Protein (NEGATIVE) mg/dL Urine Glucose (UA) (NEGATIVE) mg/dL Urine Ketones (NEGATIVE) mg/dL Urine Occult Blood (NEGATIVE) Urine Nitrite (NEGATIVE) Urine Bilirubin (NEGATIVE) Urine Urobilinogen (<2.0) EU/dL Ur Leukocyte Esterase (NEGATIVE) Meds: Medications Discontinued Medications Generic Name Dose Route Start Last Admin Trade Name Freq PRN Reason Stop Dose Admin Acetaminophen 1,000 mg 05/18/20 00:06 05/18/20 00:10 Tylenol Extra Strength PO 05/18/20 00:07 1,000 mg ONETIME ONE Administration Al Hydroxide/Mg Hydroxide 15 0 ml 05/18/20 00:06 05/18/20 00:11 ml/ Lidocaine HCl 5 ml PO 05/18/20 00:07 1 each ONETIME ONE Administration Iopamidol 100 ml 05/18/20 01:31 05/18/20 01:32 Isovue-370 (76%) IVPUSH 05/18/20 01:32 100 ml ONETIME ONE Administration Sodium Chloride 2.5 ml 05/17/20 23:29 Saline Flush FLUSH ASDIRECTED PRN Keep Vein Open Sodium Chloride 10 ml 05/17/20 23:29 Saline Flush FLUSH ASDIRECTED PRN Keep Vein Open Departure - Departure Time of Disposition: 02:41 Disposition: Home, Self-Care 01 Condition: Good Clinical Impression: Elevated liver function tests, Epigastric abdominal pain Constipation Qualifiers: Constipation type: unspecified constipation type Qualified Code(s): K59.00 - Constipation, unspecified - Discharge Information *PRESCRIPTION DRUG MONITORING PROGRAM REVIEWED*: Not Applicable *COPY OF PRESCRIPTION DRUG MONITORING REPORT IN PATIENT RIGO: Not Applicable Instructions: Liver Function Tests, Constipation, Adult, [id number], Abdominal Pain, Adult, [id number] Referrals: [facility] - General Surgery [Provider Group] - 1 Day (Follow-up with Dr. Herrera's clinic later today for re-evaluation of abnormal liver function tests and abdominal pain.) Forms: ED Department Discharge Additional Instructions: You were seen in the emergency department for abdominal pain and constipation. I am glad you are feeling better after some medications. Your liver function tests were abnormally elevated and your CT scan was concerning for a gallstone in your common bile duct. You may need to have a special study called an MRCP to see if there is a gallstone present that needs to be removed. I discussed your case with our general surgeon Dr. Herrera who would like to see you in his clinic later today for reevaluation. Dr. Herrera can order the MRCP study if he feels that it is warranted. He can also provide recommendations about having your liver function tests rechecked. In the meantime you can take [id number] MiraLAX and Metamucil for your constipation, you can also continue taking the Ex-Lax and I recommend drinking plenty of fluids. For your abdominal pain you can take [id number] Tylenol, Maalox max, and Prilosec. Take these as directed. Please return the emergency department immediately if your symptoms worsen or if you feel worse. Thank you for choosing the [facility] emergency department in [place] for your medical needs today. It was a pleasure caring for you. The following information is given to patients seen in the emergency department who are being discharged. This information is to outline your options for follow-up care. We provide all patients seen in our emergency department with a follow-up referral. The need for follow-up, as well as the timing and circumstances, are variable depending upon the specifics of your emergency department visit. If you don't have a primary care physician on staff, we will provide you with a referral. We always advise you to contact your personal physician following an emergency department visit to inform them of the circumstance of the visit and for follow-up with them and/or the need for any referrals to a consulting specialist. The emergency department will also refer you to a specialist when appropriate. This referral assures that you have the opportunity for follow-up care with a specialist. All of these measure are taken in an effort to provide you with optimal care, which includes your follow-up. Under all circumstances we always encourage you to contact your private physician who remains a resource for coordinating your care. When calling for follow-up care, please make the office aware that this follow-up is from your recent emergency room visit. If for any reason you are refused follow-up, please contact the [facility] Emergency Department at and asked to speak to the emergency department charge nurse. If you do not have a primary care physician that is caring for you, you can contact these clinics below to set up an appointment to establish care: [facility] - Primary Care [address] [place] [address] [facility] [address] [place] [id number] Sepsis Event Note (ED) - Evaluation Sepsis Screening Result: No Definite Risk - Focused Exam Vital Signs: Vital Signs Temp Pulse Resp BP Pulse Ox 05/18/20 03:08 35.9 C L 58 L 14 127/83 97 05/18/20 02:05 35.7 C L 64 16 102/57 L 95 05/18/20 00:54 59 L 18 110/63 97 05/18/20 00:05 66 16 133/81 97 05/17/20 23:12 35.6 C L 62 18 115/54 L 97 - My Orders Last 24 Hours: My Active Orders 05/17/20 23:30 Saline Lock Insert [OM.PC] Stat - Assessment/Plan Last 24 Hours: My Active Orders 05/17/20 23:30 Saline Lock Insert [OM.PC] Stat
[2020-05-18 00:27] LABS: BLOOD UREA NITROGEN,BUN 9 mg/dL (7.0-18.0); CARBON DIOXIDE,CO2 25.6 mmol/L (21.0-32.0); CHLORIDE,CL 103 mmol/L (98-107); GLUCOSE RANDOM 108 mg/dL (74-106); LIPASE 100 U/L (73-393); POTASSIUM,K 3.9 mmol/L (3.5-5.1); SODIUM,NA 139 mmol/L (136-145)
[2020-05-18] MEDS ORDERED: Iopamidol 755 Mg/ML 100 ML Bottle IVPUSH ONE (01:31)
--- NOTE | 2020-05-18 02:18 | CT ---
INDICATION: Epigastric and right upper quadrant pain with elevated LFTs. Constipation for 4 days. COMPARISON: Right upper quadrant ultrasound from 05/15/2020 TECHNIQUE: CT examination of the abdomen and pelvis was performed with the uneventful intravenous administration of 100 cc of Isovue 370 while 3 mm thick axial sections were obtained from the lung bases through the pubic symphysis. Oral contrast was not administered. Please note that all CT scans at this facility use dose modulation, iterative reconstruction, and/or weight-based dosing when appropriate to reduce radiation dose to as low as reasonably achievable. FINDINGS: In the abdomen, the liver there is a vague low density region in the medial segment of the left lobe of the liver adjacent to the falciform ligament, consistent with a hemangioma or focal fatty infiltration. This is a common incidental finding and requires no further followup. No additional abnormality is seen in the liver. The hepatic steatosis seen on ultrasound is not evident on CT. The spleen, pancreas, and adrenals are normal in appearance. The kidneys are normal in appearance. There is stable mild, with a few calcified dependent gallstones in the gallbladder. There is no sign of acute cholecystitis, with no sign of gallbladder wall thickening or pericholecystic fluid. The abdominal aorta is normal in caliber with no sign of dilatation. There is no sign of retroperitoneal mass or adenopathy. The stomach, loops of small bowel, and colon in the abdomen are normal in appearance. In the pelvis, the appendix is normal in appearance with no sign of inflammatory process. The loops of small bowel and colon in the pelvis are normal in appearance. The uterus contains a T-shaped intrauterine device in satisfactory position in the superior fundus. The left ovary has a peripherally enhancing cyst measuring 2.7 centimeters in diameter, mildly enlarging the ovary. The right ovary is normal in appearance. The urinary bladder is normal in appearance. There is no sign of pelvic or inguinal mass or adenopathy. There is no sign of free air or free fluid in the abdomen or pelvis. The lung bases are clear. The osseous structures are normal in appearance for the patient`s age. IMPRESSION: CT of the abdomen shows no change in mild cholelithiasis with no sign of acute cholecystitis. CT of the pelvis shows a 2.7 centimeter peripherally enhancing left ovarian cyst. Satisfactory positioning of a T-shaped intrauterine device in the superior fundus of the uterus. Please note that all CT scans at this facility use dose modulation, iterative reconstruction, and/or weight-based dosing when appropriate to reduce radiation dose to as low as reasonably achievable. Dictated by Shar Bynum MD @ May 18 2020 2:12AM Signed by Dr. Shar Bynum @ May 18 2020 2:17AM
== END 2020-05-18 03:15 | disposition home or self-care (01) ==
LOC: MW.ED 21:48
DX: K59.00 Constipation, unspecified (principal); R10.13 Epigastric pain; R79.89 Other specified abnormal findings of blood chemistry
CPT/HCPCS: 36415; 74177; 80053; 81003; 83605; 83690; 84703; 85025; 99284; A9270; Q9967

== ENCOUNTER 2020-05-26 08:16 | Day surgery (SDC) | payer MEDICAID, OTHER ==
[~2020-05-26 08:16] MED LIST: 50% Dextrose in Water 50 ML Syringe IVPUSH PRN; Albuterol 0.083% 2.5 MG/3 ML Neb Soln NEB PRN; Atropine 0.1 MG/ML 10 ML Syringe IVPUSH PRN; EPINEPHrine 1:10,000 1 MG/10 ML Syringe IVPUSH PRN; Glycopyrrolate 0.2 MG/ML SDV ONE; Lactated Ringers 1,000 ML IV SCH; Lidocaine 2% 5 ML SDV ONE; Midazolam 1 MG/ML 2 ML SDV ONE; Naloxone 0.4 MG/ML Syringe IVPUSH PRN; Ondansetron 4 MG/2 ML SDV ONE; Propofol 200 MG/20 ML SDV ONE; ceFAZolin 2 GM in Premix Bag 1 BAG IV ONE; fentaNYL 100 MCG/2 ML SDV IVPUSH PRN; fentaNYL 250 MCG/5 ML SDV ONE
[2020-05-26] MEDS ORDERED: Bupivacaine 25%/EPINEPHrine/PF 30 ML ONE (08:20)
[2020-05-26] MEDS ORDERED: Iopamidol 408 MG/ML 20 ML SDV ONE (08:20)
[2020-05-26] MEDS ORDERED: Scopolamine 1.5 MG Transdermal Patch TRDERM PRN (08:41)
--- NOTE | 2020-05-26 08:43 | PCM.PREANE ---
Preanesthetic Assessment - Anesthesia/Transfusion/Family Hx Anesthesia History: Prior Anesthesia Without Reaction Family History of Anesthesia Reaction: No Transfusion History: No Prior Transfusion(s) Intubation History: Unknown - Review of Systems General: No Symptoms Pulmonary: No Symptoms Cardiovascular: No Symptoms Gastrointestinal: Abdominal Pain Neurological: No Symptoms Other: Reports: None - Physical Assessment Height: 5 ft 4 in Weight: 92.986 kg ASA Class: 2 Mental Status: Alert & Oriented x3 Airway Class: Mallampati = 1 Dentition: Reports: Normal Dentition Thyro-Mental Finger Breadths: 3 Mouth Opening Finger Breadths: 3 ROM/Head Extension: Full Lungs: Clear to Auscultation, Normal Respiratory Effort Cardiovascular: Regular Rate, Regular Rhythm - Allergies Allergies/Adverse Reactions: Allergies Allergy/AdvReac Type Severity Reaction Status Date / Time No Known Allergies Allergy Verified 05/24/20 10:18 - Blood Blood Available: No - Anesthesia Plan Pre-Op Medication Ordered: None - Acknowledgements Anesthesia Type Planned: General Anesthesia Pt an Appropriate Candidate for the Planned Anesthesia: Yes Alternatives and Risks of Anesthesia Discussed w Pt/Guardian: Yes Pt/Guardian Understands and Agrees with Anesthesia Plan: Yes PreAnesthesia Questionnaire HEENT History: Reports: None Cardiovascular History: Reports: None Respiratory History: Reports: None Gastrointestinal History: Reports: Cholelithiasis Other Gastrointestinal History: intermittent RUQ pain Genitourinary History: Reports: None 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: Musculoskeletal History: Reports: None Neurological History: Reports: None Psychiatric History: Reports: Anxiety Endocrine/Metabolic History: Reports: Obesity/BMI 30+ (BMI 35.2) Hematologic History: Reports: None Immunologic History: Reports: None Oncologic (Cancer) History: Reports: None Dermatologic History: Reports: None - Infectious Disease History Infectious Disease History: Reports: None - Past Surgical History Head Surgeries/Procedures: Reports: None HEENT Surgical History: Reports: None Cardiovascular Surgical History: Reports: None Respiratory Surgical History: Reports: None GI Surgical History: Reports: None Female Surgical History: Reports: Section (x2) Endocrine Surgical History: Reports: None Neurological Surgical History: Reports: None Musculoskeletal Surgical History: Reports: None Oncologic Surgical History: Reports: None Dermatological Surgical History: Reports: None - SUBSTANCE USE Smoking Status *Q: Never Smoker - HOME MEDS Home Medications: Home Meds levonorgestreL [Mirena] 1 device VAG ONETIME 05/24/20 [History] - CURRENT (IN HOUSE) MEDS Current Meds: Current Medications Albuterol (Proventil Neb Soln) 2.5 mg NEB ONETIME PRN PRN Reason: Wheezing Atropine Sulfate (Atropine 0.1 Mg/Ml) 0.5 mg IVPUSH ASDIRECTED PRN PRN Reason: Hypo-perfusion Atropine Sulfate (Atropine 0.1 Mg/Ml) 1 mg IVPUSH ASDIRECTED PRN PRN Reason: Hypo-Perfusion Dextrose/Water (Dextrose 50% In Water) 50 ml IVPUSH ASDIRECTED PRN PRN Reason: Hypoglycemia Epinephrine HCl (Epinephrine 1:10,000) 1 mg IVPUSH ASDIRECTED PRN PRN Reason: ACLS Guidelines Fentanyl (Sublimaze) 50 - 100 mcg IVPUSH Q5M PRN PRN Reason: Pain Lactated Ringer's (Ringers, Lactated) 1,000 mls @ 125 mls/hr IV ASDIRECTED WAYLON Naloxone HCl (Narcan) 0.1 mg IVPUSH ASDIRECTED PRN PRN Reason: Respiratory Depression Scopolamine (Transderm-Scop) 1.5 mg TRDERM Q72H PRN PRN Reason: Nausea Discontinued Medications Fentanyl (Sublimaze) Confirm Administered Dose 250 mcg .ROUTE .STK-MED ONE Stop: 05/26/20 07:19 Glycopyrrolate (Robinul) Confirm Administered Dose 0.4 mg .ROUTE .STK-MED ONE Stop: 05/26/20 07:18 Cefazolin Sodium/Dextrose 2 gm (/ Premix) 50 mls @ 100 mls/hr IV ONETIME ONE Stop: 05/26/20 05:29 Bupivacaine HCl/Epinephrine Bitart (Sensorc Mpf 0.25%-Epi [id number]) Confirm Administered Dose 30 mls @ as directed .ROUTE .STK-MED ONE Stop: 05/26/20 08:21 Iopamidol (Isovue-M 200 (41%)) Confirm Administered Dose 20 ml .ROUTE .STK-MED ONE Stop: 05/26/20 08:21 Lidocaine (Xylocaine-Mpf 2%) Confirm Administered Dose 5 ml .ROUTE .STK-MED ONE Stop: 05/26/20 07:18 Midazolam HCl (Versed 1 Mg/Ml) Confirm Administered Dose 2 mg .ROUTE .STK-MED ONE Stop: 05/26/20 07:18 Ondansetron HCl (Zofran) Confirm Administered Dose 4 mg .ROUTE .STK-MED ONE Stop: 05/26/20 07:18 Propofol (Diprivan 20 Ml) Confirm Administered Dose 200 mg .ROUTE .STK-MED ONE Stop: 05/26/20 07:18
[2020-05-26] MEDS ORDERED: Scopolamine 1.5 MG Transdermal Patch ONE (08:44)
[2020-05-26 09:01] LABS: BLOOD UREA NITROGEN,BUN 14 mg/dL (7.0-18.0); CARBON DIOXIDE,CO2 25.7 mmol/L (21.0-32.0); CHLORIDE,CL 105 mmol/L (98-107); GLUCOSE RANDOM 101 mg/dL (74-106); POTASSIUM,K 3.9 mmol/L (3.5-5.1); SODIUM,NA 137 mmol/L (136-145)
[2020-05-26] MEDS ORDERED: Sodium Chloride 0.9% 20 ML ONE (09:33)
[2020-05-26] MEDS ORDERED: ceFAZolin 1 GM Vial ONE (09:33)
[2020-05-26] MEDS ORDERED: Glycopyrrolate 0.2 MG/ML SDV ONE (09:39)
[2020-05-26] MEDS ORDERED: Propofol 200 MG/20 ML SDV ONE (09:55)
[2020-05-26] MEDS ORDERED: Morphine 10 MG/ML Syringe ONE (10:03)
[2020-05-26] MEDS ORDERED: Octyl 2-Cyanoacrylate 1 Tube ONE (10:27)
--- NOTE | 2020-05-26 11:47 | PCM.OPNOTE ---
- General Post-Op/Procedure Note Date of Surgery/Procedure: 05/26/20 Operative Procedure(s): lap dee Findings: gb was contracted, mildly thickened wall, yellow and green, cw chronic cholecystitis; numerous small gallstones; [id number] Pre Op Diagnosis: acute and chronic cholecystitis Post-Op Diagnosis: Same Anesthesia Technique: General ET Tube Primary Surgeon: Stefan Herrera Pathology: same Complications: None Condition: Good
[2020-05-26] MEDS ORDERED: Acetaminophen/oxyCODONE 325-10 MG Tab PO PRN (11:48)
--- NOTE | 2020-05-26 11:48 | PCM.SN.2 ---
- Free Text/Narrative Note: pt denied any abd pain/n/v/f/c/dark urine/white stool/jaundice; and repeat chemistry today, all returned to baseline, essentially normal; choleangiogram cancelled.
--- NOTE | 2020-05-26 12:02 | PCM.POSTAN ---
POST ANESTHESIA ASSESSMENT - MENTAL STATUS Mental Status: Alert, Oriented - VITAL SIGNS Vital Signs: Last Vital Signs Temp 36.5 C 05/26/20 08:35 Pulse 73 05/26/20 11:55 Resp 13 05/26/20 11:55 BP 114/68 05/26/20 11:55 Pulse Ox 98 05/26/20 11:55 - RESPIRATORY Respiratory Status: Respiratory Rate WNL, Airway Patent, O2 Saturation Stable - CARDIOVASCULAR CV Status: Pulse Rate WNL, Blood Pressure Stable - GASTROINTESTINAL GI Status: No Symptoms - PAIN Pain Score: 4 - POST OP HYDRATION Hydration Status: Adequate & Stable - OBSERVATIONS Free Text/Narrative:: No anesthesia problems
[2020-05-26] MEDS ORDERED: Ondansetron 4 MG/2 ML SDV IVPUSH ONE (13:22)
[2020-05-26] MEDS ORDERED: fentaNYL 100 MCG/2 ML SDV IVPUSH ONE (13:22)
[2020-05-26] MEDS ORDERED: ePHEDrine 50 MG/ML SDV IVPUSH ONE (13:51)
--- NOTE | 2020-05-26 14:19 | PCM48HPAN ---
Post Anesthesia Note - EVALUATION WITHIN 48HRS OF ANESTHETIC Vital Signs in Normal Range: Yes Patient Participated in Evaluation: Yes Respiratory Function Stable: Yes Airway Patent: Yes Cardiovascular Function Stable: Yes Hydration Status Stable: Yes Pain Control Satisfactory: Yes Nausea and Vomiting Control Satisfactory: Yes Mental Status Recovered: Yes Vital Signs: Last Vital Signs Temp 36.5 C 05/26/20 08:35 Pulse 73 05/26/20 11:55 Resp 13 05/26/20 11:55 BP 114/68 05/26/20 11:55 Pulse Ox 98 05/26/20 11:55 - COMMENTS/OBSERVATIONS Free Text/Narrative:: No anesthesia problems
--- NOTE | 2020-05-26 15:20 | OR ---
SURGEON: Stefan Herrera MD DATE OF PROCEDURE: 05/26/2020 PREOPERATIVE DIAGNOSIS: Acute on chronic cholecystitis. POSTOPERATIVE DIAGNOSIS: Acute on chronic cholecystitis. PROCEDURE PROPOSED: Laparoscopic cholecystectomy. PROCEDURE PERFORMED: Laparoscopic cholecystectomy. INTRAOPERATIVE FINDINGS: Gallbladder was contracted and mildly thickened wall, yellow and green consistent with chronic cholecystitis, and numerous small gallstones and with sludge. PROCEDURE NOTE: The patient was taken to the operating room and placed in the supine position. After the intubation of general endotracheal anesthesia, the patient's abdomen was prepped and draped in the usual sterile fashion. Using [employer], a 12 mm trocar was placed supraumbilically and then followed with pneumoperitoneum. A 5 mm trocar was placed in the epigastrium and two 5 mm trocars placed in the right upper quadrant. The placement of the last three trocars was done under direct video supervision. Upon gaining entrance to the abdominal cavity, an extensive examination was then performed. The gallbladder was located and identified and retracted to the dome of the liver at the triangle of [place]ot. The cystic duct was clipped three more times and then using the endoscopic clip, was transected with placement of the endoscopic clip and transection was performed with care, ensuring the posterior prong of the instruments were clearly visualized prior to exercising the procedure. The gallbladder was dissected using electrocautery out of the liver bed and then removed using endoscopic bag through the umbilical site. The gallbladder was removed en bloc and there was no bile spillage and this was then followed with extensive irrigation until the bile was clear from blood and bile. The trocars were then removed under direct video supervision. The 12 mm umbilical site was then closed with deep stitches using 0 Vicryl followed with proximal stitches using 3-0 Vicryl and Dermabond. The other three trocar sites were closed with 3-0 Vicryl followed with approximation of skin with Dermabond. The patient was then awakened and extubated and transferred to the recovery room in hemodynamically stable condition. At the conclusion of the surgery, before closing the abdominal wound, instrument count and sponge count were done and were correct. The patient tolerated the procedure well and there were no intraoperative complications. Dr. Herrera was present through the whole procedure. Just before surgery, a timeout was called. The patient was identified and procedure identified and procedure started. Intraoperative findings dictated above. LANDRY / KATARINA /[id number]
== END 2020-05-26 14:30 | disposition home or self-care (01) ==
LOC: MW.SDS 08:16
PROVIDERS: ATTEND Surgery
DX: K80.12 Calculus of gallbladder with acute and chronic cholecystitis without obstruction (principal); F41.9 Anxiety disorder, unspecified; E66.9 Obesity, unspecified; K82.8 Other specified diseases of gallbladder; Z68.35 Body mass index [BMI] 35.0-35.9, adult
CPT/HCPCS: 36415; 47562; 80053; 81025; 83605; 83880; 85025; A9270; J0131; J0690; J2001; J2250; J2270; J2405; J2704; J3010; J3490; J7120; 88304; Q9966